=== PATIENT | male | born 1940 | race Caucasian/White ===

== ENCOUNTER 2020-10-03 13:47 | Inpatient (IN) ==
[2020-10-03] MEDS ORDERED: Triamcinolone Acet 0.1% CRM 15 GM TUBE TP PRN (16:26)
[2020-10-03] MEDS: *HR* Metformin 500 MG TABLET PO SCH (17:43)
[2020-10-03] MEDS: Melatonin 3 MG TABLET PO SCH (20:02)
[2020-10-03] MEDS: *HR* OxyCODONE Immed Rel 5 MG TABLET PO PRN (20:03)
[2020-10-03] MEDS: Famotidine 20 MG TABLET PO SCH (20:03)
[2020-10-04] MEDS ORDERED: Dextrose Gel 15 GM/37.5 ML TUBE PO PRN ×2 (05:30)
[2020-10-04] MEDS ORDERED: *HR* Dextrose 50 % in Water (Vial) 50 ML VIAL IVP PRN (05:30)
[2020-10-04] MEDS ORDERED: D5% in Water 1,000 ML IVC PRN (05:30)
[2020-10-04 07:01] LABS: Basophils % 0.3 %; Eosinophils # 0.3 K/mcL (0.0-0.6); Eosinophils % 3.6 %; Hematocrit 38.7 % (37.5-50.1); Hemoglobin 13.5 g/dL (12.9-16.9); Immature Granulocytes % 0.7 % (0-4); Lymphocytes # 1.6 K/mcL (0.6-4.6); Lymphocytes % 22.2 %; Mean Corpuscular HGB Conc 34.9 g/dL (31.6-35.5); Mean Corpuscular Hemoglobin 31.2 pg (28.0-33.3); Mean Corpuscular Volume 89.4 fL (83.0-100.0); Mean Platelet Volume 9.1 fL (9.4-12.4); Monocytes # 0.7 K/mcL (0.0-1.3); Monocytes % 9.2 %; Neutrophils # 4.6 K/mcL (1.6-8.9); Platelet Count 276 K/mcL (140-400); Red Blood Count 4.33 M/mcL (4.19-5.50); Red Cell Distribution Width 13.2 % (11.5-14.5); White Blood Count 7.2 K/mcL (4.3-11.1)
[2020-10-04 07:08] LABS: INR 1.2; Prothrombin Time 13.3 Seconds (9.4-12.1)
[2020-10-04 07:11] LABS: Activated Partial Thrombo Time 28.6 Seconds (26.0-36.0)
[2020-10-04 07:18] LABS: eGFR For African Americans > 60 (> 60); eGFR For Non-African Americans > 60 (> 60)
[2020-10-04] MEDS ORDERED: Cyanocobalamin (B-12) 1,000 MCG TABLET PO SCH (09:00)
[2020-10-04] MEDS: *HR* Metformin 500 MG TABLET PO SCH ×2 (09:42→16:43)
[2020-10-04] MEDS: *HR* OxyCODONE Immed Rel 5 MG TABLET PO PRN ×3 (09:43→20:46)
[2020-10-04] MEDS: *HR* Enoxaparin 40 MG/0.4 ML SYRINGE SQ SCH (09:54)
[2020-10-04] MEDS: Famotidine 20 MG TABLET PO SCH (20:45)
[2020-10-04] MEDS: Melatonin 3 MG TABLET PO SCH (20:45)
[2020-10-05] MEDS: *HR* Enoxaparin 40 MG/0.4 ML SYRINGE SQ SCH (05:09)
[2020-10-05] MEDS: *HR* Metformin 500 MG TABLET PO SCH ×2 (07:37→15:43)
[2020-10-05] MEDS: *HR* OxyCODONE Immed Rel 5 MG TABLET PO PRN ×3 (07:37→20:06)
[2020-10-05] MEDS: Melatonin 3 MG TABLET PO SCH (19:59)
[2020-10-05] MEDS: Famotidine 20 MG TABLET PO SCH (19:59)
[2020-10-06] MEDS: *HR* OxyCODONE Immed Rel 5 MG TABLET PO PRN ×3 (01:31→13:11)
[2020-10-06] MEDS: *HR* Enoxaparin 40 MG/0.4 ML SYRINGE SQ SCH (05:49)
[2020-10-06 07:44] VITALS: BP 125/74
[2020-10-06] MEDS: *HR* Metformin 500 MG TABLET PO SCH (08:20)
== END 2020-10-06 15:50 | disposition home health service (06) | DRG 561 ==
LOC: INPPIK 15:04
PROVIDERS: ADMIT Family Medicine; ATTEND Family Medicine

== ENCOUNTER 2022-01-16 13:37 | Inpatient (IN) ==
[2022-01-16] MEDS ORDERED: Triamcinolone Acet 0.1% CRM 15 GM TUBE TP PRN (20:39)
[2022-01-16] MEDS ORDERED: NON-FORMULARY MEDICATION 1 EACH EACH (Cefepime Hcl/D5w [Cefepime-Dextrose 2 Gm/50 Ml] 2 GM IV SCH (20:45)
[2022-01-16] MEDS ORDERED: DEXTROSE 5% IV SCH (20:45)
[2022-01-16] MEDS ORDERED: VANCOMYCIN HCL IV SCH (20:45)
[2022-01-16] MEDS ORDERED: [UNRECOGNIZED DRUG - OTHER] IV SCH (20:45)
[2022-01-16] MEDS: *HR* OxyCODONE/APAP 5/325 TABLET PO PRN (20:55)
[2022-01-16] MEDS: Lactobacillus 1 EACH CAP.SPRINK PO SCH (21:21)
[2022-01-16] MEDS: metroNIDAZOLE 500 MG TABLET PO SCH (21:21)
[2022-01-17] MEDS: Cefepime HCl 2,000 MG in 0.9 % Sodium Chloride Mini Bag 100 ML IVPB SCH ×3 (00:17→18:14)
[2022-01-17] MEDS ORDERED: Vancomycin 500 MG in 0.9 % Sodium Chloride Mini Bag 100 ML IVPB ONE (02:00)
[2022-01-17] MEDS: *HR* OxyCODONE/APAP 5/325 TABLET PO PRN ×3 (05:34→21:35)
[2022-01-17] MEDS ORDERED: DiphenhydraMINE CREAM 28.4 GM TUBE TP PRN (06:02)
[2022-01-17 06:49] LABS: Basophils % 0.3 %; Eosinophils # 0.3 K/mcL (0.0-0.6); Eosinophils % 5.6 %; Hematocrit 36.4 % (37.5-50.1); Hemoglobin 11.7 g/dL (12.9-16.9); Immature Granulocytes % 0.7 % (0-4); Lymphocytes # 1.1 K/mcL (0.6-4.6); Lymphocytes % 18.6 %; Mean Corpuscular HGB Conc 32.1 g/dL (31.6-35.5); Mean Corpuscular Hemoglobin 26.4 pg (28.0-33.3); Mean Platelet Volume 9.9 fL (9.4-12.4); Monocytes # 0.8 K/mcL (0.0-1.3); Monocytes % 12.9 %; Neutrophils # 3.6 K/mcL (1.6-8.9); Platelet Count 204 K/mcL (140-400); Red Blood Count 4.44 M/mcL (4.19-5.50); Red Cell Distribution Width 14.8 % (11.5-14.5); Segmented Neutrophils % 61.9 %; White Blood Count 5.9 K/mcL (4.3-11.1)
[2022-01-17 07:08] LABS: BUN/Creatinine Ratio 20 (6-26); Blood Urea Nitrogen 17 mg/dL (8-23); Calcium 8.6 mg/dL (8.6-10.3); Carbon Dioxide 27 mEq/L (23-29); Chloride 103 mEq/L (98-107); Glucose 144 mg/dL (70-105); Osmolality,Calculated 286 (280-300); Potassium 3.4 mEq/L (3.5-5.1); Sodium 136 mEq/L (136-145); eGFR For African Americans > 60 (> 60); eGFR For Non-African Americans > 60 (> 60)
[2022-01-17] MEDS: amLODIPine 5 MG TABLET PO SCH (08:19)
[2022-01-17] MEDS: metroNIDAZOLE 500 MG TABLET PO SCH ×3 (08:19→21:09)
[2022-01-17] MEDS: Lactobacillus 1 EACH CAP.SPRINK PO SCH ×2 (08:19→21:09)
[2022-01-17] MEDS: *HR* SitaGLIPtin 25 MG TABLET PO SCH (08:19)
[2022-01-17] MEDS: Cyanocobalamin (B-12) 1,000 MCG TABLET PO SCH (08:20)
[2022-01-17] MEDS ORDERED: Vancomycin 1,500 MG/265 ML IV.SOLN IVPB SCH (17:00)
[2022-01-18] MEDS: Cefepime HCl 2,000 MG in 0.9 % Sodium Chloride Mini Bag 100 ML IVPB SCH ×4 (01:32→23:13)
[2022-01-18] MEDS: amLODIPine 5 MG TABLET PO SCH (09:44)
[2022-01-18] MEDS: metroNIDAZOLE 500 MG TABLET PO SCH ×3 (09:44→20:03)
[2022-01-18] MEDS: *HR* SitaGLIPtin 25 MG TABLET PO SCH (09:44)
[2022-01-18] MEDS: Lactobacillus 1 EACH CAP.SPRINK PO SCH ×2 (09:44→20:03)
[2022-01-18] MEDS: Cyanocobalamin (B-12) 1,000 MCG TABLET PO SCH (09:46)
[2022-01-18] MEDS: Vancomycin 1,500 MG/265 ML IV.SOLN IVPB SCH ×2 (11:15→20:03)
[2022-01-18] MEDS ORDERED: *HR* Dextrose 50 % in Water (Syg) 50 ML SYRINGE IVP PRN (12:41)
[2022-01-18] MEDS ORDERED: D5% in Water 1,000 ML IVC PRN (12:41)
[2022-01-18] MEDS ORDERED: Dextrose Gel 15 GM/37.5 ML TUBE PO PRN ×2 (12:41)
[2022-01-18] MEDS: *HR* OxyCODONE/APAP 5/325 TABLET PO PRN ×2 (13:06→18:30)
[2022-01-18] MEDS: Insulin LISPRO 300 UNITS/3 ML VIAL SUBQ SCH ×2 (18:22→22:56)
[2022-01-19] MEDS: *HR* Enoxaparin 40 MG/0.4 ML SYRINGE SQ SCH (05:10)
[2022-01-19] MEDS: *HR* OxyCODONE/APAP 5/325 TABLET PO PRN ×3 (05:13→22:39)
[2022-01-19] MEDS: Cefepime HCl 2,000 MG in 0.9 % Sodium Chloride Mini Bag 100 ML IVPB SCH ×3 (09:09→23:38)
[2022-01-19] MEDS: Insulin LISPRO 300 UNITS/3 ML VIAL SUBQ SCH ×4 (09:11→20:46)
[2022-01-19] MEDS: Lactobacillus 1 EACH CAP.SPRINK PO SCH ×2 (09:11→20:46)
[2022-01-19] MEDS: amLODIPine 5 MG TABLET PO SCH (09:11)
[2022-01-19] MEDS: *HR* SitaGLIPtin 25 MG TABLET PO SCH (09:11)
[2022-01-19] MEDS: Cyanocobalamin (B-12) 1,000 MCG TABLET PO SCH (09:12)
[2022-01-19] MEDS: metroNIDAZOLE 500 MG TABLET PO SCH ×3 (09:12→20:45)
[2022-01-19] MEDS: Vancomycin 1,500 MG/265 ML IV.SOLN IVPB SCH ×2 (10:54→13:28)
[2022-01-20] MEDS: Vancomycin 1,500 MG/265 ML IV.SOLN IVPB SCH ×2 (00:42→11:49)
[2022-01-20] MEDS: *HR* OxyCODONE/APAP 5/325 TABLET PO PRN ×5 (02:45→22:22)
[2022-01-20] MEDS: *HR* Enoxaparin 40 MG/0.4 ML SYRINGE SQ SCH (05:20)
[2022-01-20] MEDS: Cyanocobalamin (B-12) 1,000 MCG TABLET PO SCH (08:17)
[2022-01-20] MEDS: Lactobacillus 1 EACH CAP.SPRINK PO SCH ×2 (08:17→20:06)
[2022-01-20] MEDS: metroNIDAZOLE 500 MG TABLET PO SCH ×3 (08:18→20:05)
[2022-01-20] MEDS: *HR* SitaGLIPtin 25 MG TABLET PO SCH (08:18)
[2022-01-20] MEDS: amLODIPine 5 MG TABLET PO SCH (08:18)
[2022-01-20] MEDS: Cefepime HCl 2,000 MG in 0.9 % Sodium Chloride Mini Bag 100 ML IVPB SCH ×3 (08:18→23:15)
[2022-01-20] MEDS: Insulin LISPRO 300 UNITS/3 ML VIAL SUBQ SCH ×4 (08:28→20:06)
[2022-01-21] MEDS: Vancomycin 1,500 MG/265 ML IV.SOLN IVPB SCH (00:17)
[2022-01-21] MEDS: *HR* OxyCODONE/APAP 5/325 TABLET PO PRN ×4 (05:32→20:03)
[2022-01-21] MEDS: *HR* Enoxaparin 40 MG/0.4 ML SYRINGE SQ SCH (05:32)
[2022-01-21] MEDS: Insulin LISPRO 300 UNITS/3 ML VIAL SUBQ SCH ×4 (08:01→20:05)
[2022-01-21] MEDS: Cefepime HCl 2,000 MG in 0.9 % Sodium Chloride Mini Bag 100 ML IVPB SCH ×3 (08:02→23:42)
[2022-01-21] MEDS: amLODIPine 5 MG TABLET PO SCH (08:03)
[2022-01-21] MEDS: Cyanocobalamin (B-12) 1,000 MCG TABLET PO SCH (08:03)
[2022-01-21] MEDS: metroNIDAZOLE 500 MG TABLET PO SCH ×3 (08:03→20:05)
[2022-01-21] MEDS: *HR* SitaGLIPtin 25 MG TABLET PO SCH (08:03)
[2022-01-21] MEDS: Lactobacillus 1 EACH CAP.SPRINK PO SCH ×2 (08:03→20:03)
[2022-01-21] MEDS: Vancomycin 1,250 MG/262.5 ML IV.SOLN IVPB SCH (12:54)
[2022-01-22] MEDS: Vancomycin 1,250 MG/262.5 ML IV.SOLN IVPB SCH ×2 (00:43→13:18)
[2022-01-22] MEDS: *HR* Enoxaparin 40 MG/0.4 ML SYRINGE SQ SCH (05:15)
[2022-01-22] MEDS: Insulin LISPRO 300 UNITS/3 ML VIAL SUBQ SCH ×4 (07:21→20:19)
[2022-01-22] MEDS: Cyanocobalamin (B-12) 1,000 MCG TABLET PO SCH (08:11)
[2022-01-22] MEDS: metroNIDAZOLE 500 MG TABLET PO SCH ×3 (08:12→20:12)
[2022-01-22] MEDS: Lactobacillus 1 EACH CAP.SPRINK PO SCH ×2 (08:12→20:12)
[2022-01-22] MEDS: amLODIPine 5 MG TABLET PO SCH (08:13)
[2022-01-22] MEDS: *HR* OxyCODONE/APAP 5/325 TABLET PO PRN ×3 (08:13→22:17)
[2022-01-22] MEDS: *HR* SitaGLIPtin 25 MG TABLET PO SCH (08:13)
[2022-01-22] MEDS: Cefepime HCl 2,000 MG in 0.9 % Sodium Chloride Mini Bag 100 ML IVPB SCH ×2 (08:15→16:34)
[2022-01-22 12:23] LABS: eGFR For African Americans > 60 (> 60); eGFR For Non-African Americans > 60 (> 60)
[2022-01-23] MEDS: Cefepime HCl 2,000 MG in 0.9 % Sodium Chloride Mini Bag 100 ML IVPB SCH ×3 (00:54→17:07)
[2022-01-23 01:15] LABS: eGFR For African Americans > 60 (> 60); eGFR For Non-African Americans > 60 (> 60)
[2022-01-23] MEDS: Vancomycin 1,250 MG/262.5 ML IV.SOLN IVPB SCH ×2 (01:29→12:13)
[2022-01-23] MEDS: *HR* OxyCODONE/APAP 5/325 TABLET PO PRN ×3 (03:20→20:02)
[2022-01-23] MEDS: *HR* Enoxaparin 40 MG/0.4 ML SYRINGE SQ SCH (06:20)
[2022-01-23 08:57] LABS: Basophils % 0.6 %; Eosinophils # 0.3 K/mcL (0.0-0.6); Eosinophils % 6.3 %; Hematocrit 39.6 % (37.5-50.1); Hemoglobin 12.6 g/dL (12.9-16.9); Immature Granulocytes % 0.4 % (0-4); Lymphocytes # 1.1 K/mcL (0.6-4.6); Lymphocytes % 21.6 %; Mean Corpuscular HGB Conc 31.8 g/dL (31.6-35.5); Mean Corpuscular Hemoglobin 25.9 pg (28.0-33.3); Mean Corpuscular Volume 81.3 fL (83.0-100.0); Mean Platelet Volume 9.5 fL (9.4-12.4); Monocytes # 0.5 K/mcL (0.0-1.3); Monocytes % 9.5 %; Neutrophils # 3.1 K/mcL (1.6-8.9); Platelet Count 243 K/mcL (140-400); Red Blood Count 4.87 M/mcL (4.19-5.50); Red Cell Distribution Width 14.6 % (11.5-14.5); Segmented Neutrophils % 61.6 %
[2022-01-23] MEDS: amLODIPine 5 MG TABLET PO SCH (09:01)
[2022-01-23] MEDS: Cyanocobalamin (B-12) 1,000 MCG TABLET PO SCH (09:02)
[2022-01-23] MEDS: Lactobacillus 1 EACH CAP.SPRINK PO SCH ×2 (09:02→20:02)
[2022-01-23] MEDS: metroNIDAZOLE 500 MG TABLET PO SCH ×3 (09:02→20:02)
[2022-01-23] MEDS: *HR* SitaGLIPtin 25 MG TABLET PO SCH (09:02)
[2022-01-23] MEDS: Insulin LISPRO 300 UNITS/3 ML VIAL SUBQ SCH ×4 (09:04→21:00)
[2022-01-23 09:07] LABS: BUN/Creatinine Ratio 18 (6-26); Blood Urea Nitrogen 14 mg/dL (8-23); Calcium 8.9 mg/dL (8.6-10.3); Carbon Dioxide 26 mEq/L (23-29); Chloride 103 mEq/L (98-107); Glucose 135 mg/dL (70-105); Osmolality,Calculated 289 (280-300); Sodium 138 mEq/L (136-145); eGFR For African Americans > 60 (> 60); eGFR For Non-African Americans > 60 (> 60)
[2022-01-23 13:10] LABS: C-Reactive Protein < 5 mg/L (Less than 10)
[2022-01-24] MEDS: Cefepime HCl 2,000 MG in 0.9 % Sodium Chloride Mini Bag 100 ML IVPB SCH ×4 (00:36→23:43)
[2022-01-24] MEDS: Vancomycin 1,250 MG/262.5 ML IV.SOLN IVPB SCH ×2 (01:45→13:33)
[2022-01-24] MEDS: *HR* Enoxaparin 40 MG/0.4 ML SYRINGE SQ SCH (05:13)
[2022-01-24 08:12] LABS: eGFR For African Americans > 60 (> 60); eGFR For Non-African Americans > 60 (> 60)
[2022-01-24] MEDS: Cyanocobalamin (B-12) 1,000 MCG TABLET PO SCH (08:13)
[2022-01-24] MEDS: metroNIDAZOLE 500 MG TABLET PO SCH ×3 (08:13→20:36)
[2022-01-24] MEDS: *HR* SitaGLIPtin 25 MG TABLET PO SCH (08:13)
[2022-01-24] MEDS: amLODIPine 5 MG TABLET PO SCH (08:13)
[2022-01-24] MEDS: Lactobacillus 1 EACH CAP.SPRINK PO SCH ×2 (08:13→20:36)
[2022-01-24] MEDS: Insulin LISPRO 300 UNITS/3 ML VIAL SUBQ SCH ×4 (08:21→20:37)
[2022-01-25] MEDS: Vancomycin 1,250 MG/262.5 ML IV.SOLN IVPB SCH ×3 (00:30→23:53)
[2022-01-25 06:12] LABS: eGFR For African Americans > 60 (> 60); eGFR For Non-African Americans > 60 (> 60)
[2022-01-25] MEDS: *HR* Enoxaparin 40 MG/0.4 ML SYRINGE SQ SCH (08:03)
[2022-01-25] MEDS: Insulin LISPRO 300 UNITS/3 ML VIAL SUBQ SCH ×4 (08:04→20:34)
[2022-01-25] MEDS: Cefepime HCl 2,000 MG in 0.9 % Sodium Chloride Mini Bag 100 ML IVPB SCH ×3 (08:05→23:03)
[2022-01-25] MEDS: metroNIDAZOLE 500 MG TABLET PO SCH ×3 (08:06→20:33)
[2022-01-25] MEDS: Lactobacillus 1 EACH CAP.SPRINK PO SCH ×2 (08:06→20:33)
[2022-01-25] MEDS: Cyanocobalamin (B-12) 1,000 MCG TABLET PO SCH (08:07)
[2022-01-25] MEDS: *HR* SitaGLIPtin 25 MG TABLET PO SCH (08:07)
[2022-01-25] MEDS: amLODIPine 5 MG TABLET PO SCH (08:07)
[2022-01-26] MEDS: *HR* Enoxaparin 40 MG/0.4 ML SYRINGE SQ SCH (05:14)
[2022-01-26 07:17] LABS: eGFR For African Americans > 60 (> 60); eGFR For Non-African Americans > 60 (> 60)
[2022-01-26] MEDS: Cefepime HCl 2,000 MG in 0.9 % Sodium Chloride Mini Bag 100 ML IVPB SCH ×2 (09:39→15:38)
[2022-01-26] MEDS: Insulin LISPRO 300 UNITS/3 ML VIAL SUBQ SCH ×4 (09:39→21:08)
[2022-01-26] MEDS: amLODIPine 5 MG TABLET PO SCH (09:40)
[2022-01-26] MEDS: metroNIDAZOLE 500 MG TABLET PO SCH ×3 (09:40→20:39)
[2022-01-26] MEDS: Lactobacillus 1 EACH CAP.SPRINK PO SCH ×2 (09:41→20:38)
[2022-01-26] MEDS: Cyanocobalamin (B-12) 1,000 MCG TABLET PO SCH (09:41)
[2022-01-26] MEDS: *HR* SitaGLIPtin 25 MG TABLET PO SCH (09:41)
[2022-01-26] MEDS: Vancomycin 1,250 MG/262.5 ML IV.SOLN IVPB SCH (13:39)
[2022-01-26] MEDS: *HR* OxyCODONE/APAP 5/325 TABLET PO PRN (20:38)
[2022-01-27] MEDS: Cefepime HCl 2,000 MG in 0.9 % Sodium Chloride Mini Bag 100 ML IVPB SCH ×4 (00:40→23:26)
[2022-01-27] MEDS: Vancomycin 1,250 MG/262.5 ML IV.SOLN IVPB SCH ×2 (02:00→14:00)
[2022-01-27] MEDS: *HR* Enoxaparin 40 MG/0.4 ML SYRINGE SQ SCH (06:44)
[2022-01-27] MEDS: Insulin LISPRO 300 UNITS/3 ML VIAL SUBQ SCH ×4 (07:40→20:04)
[2022-01-27] MEDS: amLODIPine 5 MG TABLET PO SCH (10:16)
[2022-01-27] MEDS: metroNIDAZOLE 500 MG TABLET PO SCH ×3 (10:16→19:57)
[2022-01-27] MEDS: Cyanocobalamin (B-12) 1,000 MCG TABLET PO SCH (10:16)
[2022-01-27] MEDS: *HR* SitaGLIPtin 25 MG TABLET PO SCH (10:16)
[2022-01-27] MEDS: Lactobacillus 1 EACH CAP.SPRINK PO SCH ×2 (10:16→19:57)
[2022-01-28] MEDS: Vancomycin 1,250 MG/262.5 ML IV.SOLN IVPB SCH ×2 (00:36→14:33)
[2022-01-28] MEDS: *HR* Enoxaparin 40 MG/0.4 ML SYRINGE SQ SCH (06:01)
[2022-01-28] MEDS: Cyanocobalamin (B-12) 1,000 MCG TABLET PO SCH (08:46)
[2022-01-28] MEDS: Lactobacillus 1 EACH CAP.SPRINK PO SCH ×2 (08:46→19:17)
[2022-01-28] MEDS: *HR* SitaGLIPtin 25 MG TABLET PO SCH (08:46)
[2022-01-28] MEDS: Cefepime HCl 2,000 MG in 0.9 % Sodium Chloride Mini Bag 100 ML IVPB SCH ×3 (08:46→23:00)
[2022-01-28] MEDS: metroNIDAZOLE 500 MG TABLET PO SCH ×3 (08:46→19:17)
[2022-01-28] MEDS: amLODIPine 5 MG TABLET PO SCH (08:46)
[2022-01-28] MEDS: Insulin LISPRO 300 UNITS/3 ML VIAL SUBQ SCH ×4 (08:47→21:07)
[2022-01-28 08:52] LABS: eGFR For African Americans > 60 (> 60); eGFR For Non-African Americans > 60 (> 60)
[2022-01-29] MEDS: Vancomycin 1,250 MG/262.5 ML IV.SOLN IVPB SCH ×2 (00:10→14:46)
[2022-01-29] MEDS: *HR* Enoxaparin 40 MG/0.4 ML SYRINGE SQ SCH (05:45)
[2022-01-29 07:41] LABS: Basophils % 0.4 %; Eosinophils # 0.4 K/mcL (0.0-0.6); Eosinophils % 7.9 %; Hematocrit 37.9 % (37.5-50.1); Hemoglobin 12.1 g/dL (12.9-16.9); Immature Granulocytes % 0.2 % (0-4); Lymphocytes % 21.5 %; Mean Corpuscular HGB Conc 31.9 g/dL (31.6-35.5); Mean Corpuscular Hemoglobin 25.8 pg (28.0-33.3); Mean Corpuscular Volume 80.8 fL (83.0-100.0); Mean Platelet Volume 9.9 fL (9.4-12.4); Monocytes # 0.6 K/mcL (0.0-1.3); Monocytes % 12.6 %; Neutrophils # 2.7 K/mcL (1.6-8.9); Platelet Count 184 K/mcL (140-400); Red Blood Count 4.69 M/mcL (4.19-5.50); Red Cell Distribution Width 14.8 % (11.5-14.5); Segmented Neutrophils % 57.4 %; White Blood Count 4.8 K/mcL (4.3-11.1)
[2022-01-29 07:51] LABS: BUN/Creatinine Ratio 22 (6-26); Blood Urea Nitrogen 14 mg/dL (8-23); Calcium 8.7 mg/dL (8.6-10.3); Carbon Dioxide 27 mEq/L (23-29); Chloride 105 mEq/L (98-107); Glucose 125 mg/dL (70-105); Osmolality,Calculated 290 (280-300); Sodium 139 mEq/L (136-145); eGFR For African Americans > 60 (> 60); eGFR For Non-African Americans > 60 (> 60)
[2022-01-29] MEDS: Insulin LISPRO 300 UNITS/3 ML VIAL SUBQ SCH ×4 (08:17→21:32)
[2022-01-29] MEDS: metroNIDAZOLE 500 MG TABLET PO SCH ×3 (08:26→21:31)
[2022-01-29] MEDS: Lactobacillus 1 EACH CAP.SPRINK PO SCH ×2 (08:26→21:32)
[2022-01-29] MEDS: amLODIPine 5 MG TABLET PO SCH (08:26)
[2022-01-29] MEDS: Cyanocobalamin (B-12) 1,000 MCG TABLET PO SCH (08:26)
[2022-01-29] MEDS: *HR* SitaGLIPtin 25 MG TABLET PO SCH (08:26)
[2022-01-29] MEDS: Cefepime HCl 2,000 MG in 0.9 % Sodium Chloride Mini Bag 100 ML IVPB SCH ×2 (08:27→17:20)
[2022-01-29] MEDS: *HR* OxyCODONE/APAP 5/325 TABLET PO PRN (09:16)
[2022-01-29 12:10] LABS: C-Reactive Protein < 5 mg/L (Less than 10)
[2022-01-30] MEDS: Cefepime HCl 2,000 MG in 0.9 % Sodium Chloride Mini Bag 100 ML IVPB SCH ×3 (00:41→15:00)
[2022-01-30] MEDS: Vancomycin 1,250 MG/262.5 ML IV.SOLN IVPB SCH ×2 (01:59→12:20)
[2022-01-30] MEDS: *HR* Enoxaparin 40 MG/0.4 ML SYRINGE SQ SCH (06:23)
[2022-01-30] MEDS: Insulin LISPRO 300 UNITS/3 ML VIAL SUBQ SCH ×4 (07:53→19:44)
[2022-01-30] MEDS: amLODIPine 5 MG TABLET PO SCH (07:54)
[2022-01-30] MEDS: *HR* SitaGLIPtin 25 MG TABLET PO SCH (07:54)
[2022-01-30] MEDS: metroNIDAZOLE 500 MG TABLET PO SCH ×2 (07:55→15:01)
[2022-01-30] MEDS: Lactobacillus 1 EACH CAP.SPRINK PO SCH ×2 (07:55→19:32)
[2022-01-30] MEDS: Cyanocobalamin (B-12) 1,000 MCG TABLET PO SCH (07:55)
[2022-01-31] MEDS: Cefepime HCl 2,000 MG in 0.9 % Sodium Chloride Mini Bag 100 ML IVPB SCH ×3 (00:55→15:50)
[2022-01-31] MEDS: Vancomycin 1,250 MG/262.5 ML IV.SOLN IVPB SCH ×2 (01:52→13:34)
[2022-01-31] MEDS: *HR* Enoxaparin 40 MG/0.4 ML SYRINGE SQ SCH (06:20)
[2022-01-31] MEDS: Lactobacillus 1 EACH CAP.SPRINK PO SCH ×2 (08:54→20:13)
[2022-01-31] MEDS: *HR* SitaGLIPtin 25 MG TABLET PO SCH (08:54)
[2022-01-31] MEDS: Cyanocobalamin (B-12) 1,000 MCG TABLET PO SCH (08:54)
[2022-01-31] MEDS: amLODIPine 5 MG TABLET PO SCH (08:54)
[2022-01-31] MEDS: Insulin LISPRO 300 UNITS/3 ML VIAL SUBQ SCH ×4 (08:57→20:13)
[2022-01-31] MEDS: *HR* OxyCODONE/APAP 5/325 TABLET PO PRN (20:12)
[2022-02-01] MEDS: Vancomycin 1,250 MG/262.5 ML IV.SOLN IVPB SCH ×2 (01:11→13:51)
[2022-02-01] MEDS: *HR* Enoxaparin 40 MG/0.4 ML SYRINGE SQ SCH (06:11)
[2022-02-01] MEDS: amLODIPine 5 MG TABLET PO SCH (07:56)
[2022-02-01] MEDS: Cyanocobalamin (B-12) 1,000 MCG TABLET PO SCH (07:56)
[2022-02-01] MEDS: Lactobacillus 1 EACH CAP.SPRINK PO SCH ×2 (07:56→22:38)
[2022-02-01] MEDS: *HR* SitaGLIPtin 25 MG TABLET PO SCH (07:56)
[2022-02-01] MEDS: Insulin LISPRO 300 UNITS/3 ML VIAL SUBQ SCH ×4 (07:57→22:41)
[2022-02-01] MEDS: *HR* OxyCODONE/APAP 5/325 TABLET PO PRN (22:39)
[2022-02-02] MEDS: Vancomycin 1,250 MG/262.5 ML IV.SOLN IVPB SCH ×2 (01:16→14:14)
[2022-02-02] MEDS: *HR* Enoxaparin 40 MG/0.4 ML SYRINGE SQ SCH (06:45)
[2022-02-02] MEDS: amLODIPine 5 MG TABLET PO SCH (07:55)
[2022-02-02] MEDS: *HR* OxyCODONE/APAP 5/325 TABLET PO PRN ×2 (07:56→21:34)
[2022-02-02] MEDS: Lactobacillus 1 EACH CAP.SPRINK PO SCH ×2 (07:56→21:33)
[2022-02-02] MEDS: Cyanocobalamin (B-12) 1,000 MCG TABLET PO SCH (07:56)
[2022-02-02] MEDS: *HR* SitaGLIPtin 25 MG TABLET PO SCH (07:56)
[2022-02-02] MEDS: Insulin LISPRO 300 UNITS/3 ML VIAL SUBQ SCH ×4 (07:57→21:36)
[2022-02-03] MEDS: Vancomycin 1,250 MG/262.5 ML IV.SOLN IVPB SCH ×2 (01:40→12:52)
[2022-02-03] MEDS: *HR* Enoxaparin 40 MG/0.4 ML SYRINGE SQ SCH (06:29)
[2022-02-03] MEDS: Insulin LISPRO 300 UNITS/3 ML VIAL SUBQ SCH ×4 (07:41→21:18)
[2022-02-03] MEDS: *HR* SitaGLIPtin 25 MG TABLET PO SCH (07:41)
[2022-02-03] MEDS: Lactobacillus 1 EACH CAP.SPRINK PO SCH ×2 (07:42→21:17)
[2022-02-03] MEDS: Cyanocobalamin (B-12) 1,000 MCG TABLET PO SCH (07:42)
[2022-02-03] MEDS: amLODIPine 5 MG TABLET PO SCH (07:42)
[2022-02-03] MEDS: *HR* OxyCODONE/APAP 5/325 TABLET PO PRN ×2 (07:46→21:18)
[2022-02-04] MEDS: Vancomycin 1,250 MG/262.5 ML IV.SOLN IVPB SCH ×2 (00:55→13:03)
[2022-02-04] MEDS: *HR* Enoxaparin 40 MG/0.4 ML SYRINGE SQ SCH (05:23)
[2022-02-04] MEDS: Insulin LISPRO 300 UNITS/3 ML VIAL SUBQ SCH ×4 (07:27→20:52)
[2022-02-04] MEDS: amLODIPine 5 MG TABLET PO SCH (08:41)
[2022-02-04] MEDS: Cyanocobalamin (B-12) 1,000 MCG TABLET PO SCH (08:42)
[2022-02-04] MEDS: *HR* SitaGLIPtin 25 MG TABLET PO SCH (08:42)
[2022-02-04] MEDS: Lactobacillus 1 EACH CAP.SPRINK PO SCH ×2 (08:42→20:52)
[2022-02-05] MEDS: Vancomycin 1,250 MG/262.5 ML IV.SOLN IVPB SCH ×2 (00:50→13:41)
[2022-02-05] MEDS: *HR* Enoxaparin 40 MG/0.4 ML SYRINGE SQ SCH (05:27)
[2022-02-05] MEDS: Lactobacillus 1 EACH CAP.SPRINK PO SCH ×2 (09:44→19:58)
[2022-02-05] MEDS: amLODIPine 5 MG TABLET PO SCH (09:44)
[2022-02-05] MEDS: *HR* SitaGLIPtin 25 MG TABLET PO SCH (09:44)
[2022-02-05] MEDS: metroNIDAZOLE 500 MG TABLET PO SCH ×3 (09:45→19:59)
[2022-02-05] MEDS: Insulin LISPRO 300 UNITS/3 ML VIAL SUBQ SCH ×4 (09:45→19:59)
[2022-02-05] MEDS: Cyanocobalamin (B-12) 1,000 MCG TABLET PO SCH (09:45)
[2022-02-05] MEDS: *HR* OxyCODONE/APAP 5/325 TABLET PO PRN (20:02)
[2022-02-06] MEDS: Vancomycin 1,250 MG/262.5 ML IV.SOLN IVPB SCH ×2 (00:54→14:56)
[2022-02-06] MEDS: *HR* Enoxaparin 40 MG/0.4 ML SYRINGE SQ SCH (05:29)
[2022-02-06] MEDS: Insulin LISPRO 300 UNITS/3 ML VIAL SUBQ SCH ×3 (08:55→16:39)
[2022-02-06] MEDS: metroNIDAZOLE 500 MG TABLET PO SCH ×3 (09:01→20:05)
[2022-02-06] MEDS: Lactobacillus 1 EACH CAP.SPRINK PO SCH ×2 (09:01→20:05)
[2022-02-06] MEDS: *HR* SitaGLIPtin 25 MG TABLET PO SCH (09:02)
[2022-02-06] MEDS: amLODIPine 5 MG TABLET PO SCH (09:02)
[2022-02-06] MEDS: Cyanocobalamin (B-12) 1,000 MCG TABLET PO SCH (09:02)
[2022-02-06 09:04] LABS: Basophils % 0.5 %; Eosinophils # 0.3 K/mcL (0.0-0.6); Eosinophils % 7.6 %; Hematocrit 42.9 % (37.5-50.1); Hemoglobin 13.9 g/dL (12.9-16.9); Immature Granulocytes % 0.3 % (0-4); Lymphocytes # 1.1 K/mcL (0.6-4.6); Lymphocytes % 27.2 %; Mean Corpuscular HGB Conc 32.4 g/dL (31.6-35.5); Mean Corpuscular Hemoglobin 26.1 pg (28.0-33.3); Mean Corpuscular Volume 80.5 fL (83.0-100.0); Mean Platelet Volume 10.4 fL (9.4-12.4); Monocytes # 0.5 K/mcL (0.0-1.3); Platelet Count 178 K/mcL (140-400); Red Blood Count 5.33 M/mcL (4.19-5.50); Segmented Neutrophils % 51.4 %; White Blood Count 3.9 K/mcL (4.3-11.1)
[2022-02-06 09:31] LABS: BUN/Creatinine Ratio 24 (6-26); Blood Urea Nitrogen 18 mg/dL (8-23); Calcium 9.2 mg/dL (8.6-10.3); Carbon Dioxide 24 mEq/L (23-29); Chloride 104 mEq/L (98-107); Glucose 145 mg/dL (70-105); Osmolality,Calculated 288 (280-300); Potassium 4.5 mEq/L (3.5-5.1); Sodium 137 mEq/L (136-145); eGFR For African Americans > 60 (> 60); eGFR For Non-African Americans > 60 (> 60)
[2022-02-06] MEDS: *HR* OxyCODONE/APAP 5/325 TABLET PO PRN (20:04)
[2022-02-06 21:00] LABS: C-Reactive Protein < 5 mg/L (Less than 10)
[2022-02-07] MEDS: Insulin LISPRO 300 UNITS/3 ML VIAL SUBQ SCH ×5 (00:02→21:03)
[2022-02-07] MEDS: Vancomycin 1,250 MG/262.5 ML IV.SOLN IVPB SCH ×2 (00:51→13:10)
[2022-02-07] MEDS: *HR* Enoxaparin 40 MG/0.4 ML SYRINGE SQ SCH (05:56)
[2022-02-07] MEDS: Lactobacillus 1 EACH CAP.SPRINK PO SCH ×2 (07:41→21:02)
[2022-02-07] MEDS: amLODIPine 5 MG TABLET PO SCH (07:41)
[2022-02-07] MEDS: metroNIDAZOLE 500 MG TABLET PO SCH ×3 (07:41→21:02)
[2022-02-07] MEDS: Cyanocobalamin (B-12) 1,000 MCG TABLET PO SCH (07:41)
[2022-02-07] MEDS: *HR* SitaGLIPtin 25 MG TABLET PO SCH (07:41)
[2022-02-07] MEDS: *HR* OxyCODONE/APAP 5/325 TABLET PO PRN (21:02)
[2022-02-08] MEDS: Vancomycin 1,250 MG/262.5 ML IV.SOLN IVPB SCH ×2 (01:00→13:25)
[2022-02-08] MEDS: *HR* Enoxaparin 40 MG/0.4 ML SYRINGE SQ SCH (05:30)
[2022-02-08] MEDS: Cyanocobalamin (B-12) 1,000 MCG TABLET PO SCH (08:16)
[2022-02-08] MEDS: Lactobacillus 1 EACH CAP.SPRINK PO SCH ×2 (08:16→21:39)
[2022-02-08] MEDS: metroNIDAZOLE 500 MG TABLET PO SCH ×3 (08:16→21:39)
[2022-02-08] MEDS: *HR* SitaGLIPtin 25 MG TABLET PO SCH (08:16)
[2022-02-08] MEDS: amLODIPine 5 MG TABLET PO SCH (08:16)
[2022-02-08] MEDS: Insulin LISPRO 300 UNITS/3 ML VIAL SUBQ SCH ×4 (08:17→21:42)
[2022-02-08] MEDS: *HR* OxyCODONE/APAP 5/325 TABLET PO PRN (21:40)
[2022-02-09] MEDS: Vancomycin 1,250 MG/262.5 ML IV.SOLN IVPB SCH ×2 (01:25→11:51)
[2022-02-09] MEDS: *HR* Enoxaparin 40 MG/0.4 ML SYRINGE SQ SCH (05:53)
[2022-02-09] MEDS: amLODIPine 5 MG TABLET PO SCH (08:43)
[2022-02-09] MEDS: Lactobacillus 1 EACH CAP.SPRINK PO SCH ×2 (08:43→20:52)
[2022-02-09] MEDS: Cyanocobalamin (B-12) 1,000 MCG TABLET PO SCH (08:44)
[2022-02-09] MEDS: *HR* SitaGLIPtin 25 MG TABLET PO SCH (08:44)
[2022-02-09] MEDS: metroNIDAZOLE 500 MG TABLET PO SCH ×3 (08:44→20:52)
[2022-02-09] MEDS: Insulin LISPRO 300 UNITS/3 ML VIAL SUBQ SCH ×4 (08:47→21:00)
[2022-02-09] MEDS: *HR* OxyCODONE/APAP 5/325 TABLET PO PRN (16:32)
[2022-02-10] MEDS: Vancomycin 1,250 MG/262.5 ML IV.SOLN IVPB SCH ×2 (02:57→12:11)
[2022-02-10] MEDS: *HR* Enoxaparin 40 MG/0.4 ML SYRINGE SQ SCH (05:57)
[2022-02-10] MEDS: Cyanocobalamin (B-12) 1,000 MCG TABLET PO SCH (07:55)
[2022-02-10] MEDS: metroNIDAZOLE 500 MG TABLET PO SCH ×3 (07:55→20:18)
[2022-02-10] MEDS: Lactobacillus 1 EACH CAP.SPRINK PO SCH ×2 (07:56→20:14)
[2022-02-10] MEDS: *HR* SitaGLIPtin 25 MG TABLET PO SCH (07:56)
[2022-02-10] MEDS: Insulin LISPRO 300 UNITS/3 ML VIAL SUBQ SCH ×4 (07:57→20:24)
[2022-02-10] MEDS: amLODIPine 5 MG TABLET PO SCH (08:56)
[2022-02-10] MEDS: *HR* OxyCODONE/APAP 5/325 TABLET PO PRN (20:14)
[2022-02-11] MEDS: Vancomycin 1,250 MG/262.5 ML IV.SOLN IVPB SCH ×2 (00:43→13:44)
[2022-02-11] MEDS: *HR* Enoxaparin 40 MG/0.4 ML SYRINGE SQ SCH (05:44)
[2022-02-11] MEDS: Lactobacillus 1 EACH CAP.SPRINK PO SCH ×2 (07:40→20:35)
[2022-02-11] MEDS: *HR* SitaGLIPtin 25 MG TABLET PO SCH (07:40)
[2022-02-11] MEDS: metroNIDAZOLE 500 MG TABLET PO SCH ×3 (07:40→20:35)
[2022-02-11] MEDS: Cyanocobalamin (B-12) 1,000 MCG TABLET PO SCH (07:40)
[2022-02-11] MEDS: amLODIPine 5 MG TABLET PO SCH (07:41)
[2022-02-11] MEDS: Insulin LISPRO 300 UNITS/3 ML VIAL SUBQ SCH ×4 (07:43→20:35)
[2022-02-11] MEDS: *HR* OxyCODONE/APAP 5/325 TABLET PO PRN (20:35)
[2022-02-12] MEDS: Vancomycin 1,250 MG/262.5 ML IV.SOLN IVPB SCH ×2 (01:09→13:50)
[2022-02-12] MEDS: *HR* Enoxaparin 40 MG/0.4 ML SYRINGE SQ SCH (04:58)
[2022-02-12] MEDS: Insulin LISPRO 300 UNITS/3 ML VIAL SUBQ SCH ×4 (08:16→21:36)
[2022-02-12 08:25] LABS: Basophils % 0.7 %; Eosinophils # 0.2 K/mcL (0.0-0.6); Eosinophils % 7.2 %; Hematocrit 40.2 % (37.5-50.1); Hemoglobin 13.3 g/dL (12.9-16.9); Immature Granulocytes % 0.3 % (0-4); Lymphocytes # 0.9 K/mcL (0.6-4.6); Lymphocytes % 31.3 %; Mean Corpuscular HGB Conc 33.1 g/dL (31.6-35.5); Mean Corpuscular Hemoglobin 26.3 pg (28.0-33.3); Mean Corpuscular Volume 79.4 fL (83.0-100.0); Mean Platelet Volume 9.7 fL (9.4-12.4); Monocytes # 0.6 K/mcL (0.0-1.3); Monocytes % 19.9 %; Neutrophils # 1.2 K/mcL (1.6-8.9); Platelet Count 159 K/mcL (140-400); Red Blood Count 5.06 M/mcL (4.19-5.50); Red Cell Distribution Width 15.3 % (11.5-14.5); Segmented Neutrophils % 40.6 %; White Blood Count 2.9 K/mcL (4.3-11.1)
[2022-02-12 08:51] LABS: BUN/Creatinine Ratio 21 (6-26); Blood Urea Nitrogen 15 mg/dL (8-23); Carbon Dioxide 24 mEq/L (23-29); Chloride 105 mEq/L (98-107); Glucose 118 mg/dL (70-105); Osmolality,Calculated 286 (280-300); Potassium 3.5 mEq/L (3.5-5.1); Sodium 137 mEq/L (136-145); eGFR For African Americans > 60 (> 60); eGFR For Non-African Americans > 60 (> 60)
[2022-02-12 09:36] LABS: Platelet Estimate Normal (Normal)
[2022-02-12] MEDS: *HR* SitaGLIPtin 25 MG TABLET PO SCH (09:36)
[2022-02-12] MEDS: metroNIDAZOLE 500 MG TABLET PO SCH ×3 (09:37→21:41)
[2022-02-12] MEDS: Lactobacillus 1 EACH CAP.SPRINK PO SCH ×2 (09:37→21:41)
[2022-02-12] MEDS: Cyanocobalamin (B-12) 1,000 MCG TABLET PO SCH (09:37)
[2022-02-12] MEDS: amLODIPine 5 MG TABLET PO SCH (09:38)
[2022-02-12 21:02] LABS: C-Reactive Protein < 5 mg/L (Less than 10)
[2022-02-12] MEDS: *HR* OxyCODONE/APAP 5/325 TABLET PO PRN (21:41)
[2022-02-13] MEDS: Vancomycin 1,250 MG/262.5 ML IV.SOLN IVPB SCH ×2 (01:16→13:26)
[2022-02-13] MEDS: *HR* Enoxaparin 40 MG/0.4 ML SYRINGE SQ SCH (06:49)
[2022-02-13] MEDS: Cyanocobalamin (B-12) 1,000 MCG TABLET PO SCH (09:15)
[2022-02-13] MEDS: Lactobacillus 1 EACH CAP.SPRINK PO SCH ×2 (09:15→21:13)
[2022-02-13] MEDS: *HR* SitaGLIPtin 25 MG TABLET PO SCH (09:15)
[2022-02-13] MEDS: amLODIPine 5 MG TABLET PO SCH (09:15)
[2022-02-13] MEDS: metroNIDAZOLE 500 MG TABLET PO SCH ×3 (09:15→21:12)
[2022-02-13] MEDS: Insulin LISPRO 300 UNITS/3 ML VIAL SUBQ SCH ×4 (09:15→21:13)
[2022-02-13] MEDS: *HR* OxyCODONE/APAP 5/325 TABLET PO PRN (21:12)
[2022-02-14] MEDS: Vancomycin 1,250 MG/262.5 ML IV.SOLN IVPB SCH ×2 (01:43→13:40)
[2022-02-14] MEDS: *HR* Enoxaparin 40 MG/0.4 ML SYRINGE SQ SCH (05:56)
[2022-02-14] MEDS: Insulin LISPRO 300 UNITS/3 ML VIAL SUBQ SCH ×4 (09:04→21:14)
[2022-02-14] MEDS: Lactobacillus 1 EACH CAP.SPRINK PO SCH ×2 (09:05→21:13)
[2022-02-14] MEDS: Cyanocobalamin (B-12) 1,000 MCG TABLET PO SCH (09:05)
[2022-02-14] MEDS: metroNIDAZOLE 500 MG TABLET PO SCH ×3 (09:05→21:14)
[2022-02-14] MEDS: *HR* SitaGLIPtin 25 MG TABLET PO SCH (09:05)
[2022-02-14] MEDS: amLODIPine 5 MG TABLET PO SCH (09:05)
[2022-02-14] MEDS: *HR* OxyCODONE/APAP 5/325 TABLET PO PRN (21:13)
[2022-02-15] MEDS: Vancomycin 1,250 MG/262.5 ML IV.SOLN IVPB SCH ×2 (01:25→14:02)
[2022-02-15] MEDS: *HR* Enoxaparin 40 MG/0.4 ML SYRINGE SQ SCH (06:44)
[2022-02-15] MEDS: amLODIPine 5 MG TABLET PO SCH (08:08)
[2022-02-15] MEDS: metroNIDAZOLE 500 MG TABLET PO SCH ×3 (08:08→20:22)
[2022-02-15] MEDS: Cyanocobalamin (B-12) 1,000 MCG TABLET PO SCH (08:08)
[2022-02-15] MEDS: Lactobacillus 1 EACH CAP.SPRINK PO SCH ×2 (08:08→20:22)
[2022-02-15] MEDS: *HR* SitaGLIPtin 25 MG TABLET PO SCH (08:08)
[2022-02-15] MEDS: Insulin LISPRO 300 UNITS/3 ML VIAL SUBQ SCH ×4 (08:09→20:23)
[2022-02-15] MEDS: *HR* OxyCODONE/APAP 5/325 TABLET PO PRN (20:22)
[2022-02-16] MEDS: Vancomycin 1,250 MG/262.5 ML IV.SOLN IVPB SCH ×2 (01:21→12:10)
[2022-02-16] MEDS: *HR* Enoxaparin 40 MG/0.4 ML SYRINGE SQ SCH (06:06)
[2022-02-16] MEDS: Insulin LISPRO 300 UNITS/3 ML VIAL SUBQ SCH ×4 (07:31→20:24)
[2022-02-16] MEDS: *HR* SitaGLIPtin 25 MG TABLET PO SCH (08:56)
[2022-02-16] MEDS: metroNIDAZOLE 500 MG TABLET PO SCH ×3 (08:56→20:17)
[2022-02-16] MEDS: Cyanocobalamin (B-12) 1,000 MCG TABLET PO SCH (08:56)
[2022-02-16] MEDS: Lactobacillus 1 EACH CAP.SPRINK PO SCH ×2 (08:56→20:17)
[2022-02-16] MEDS: amLODIPine 5 MG TABLET PO SCH (08:56)
[2022-02-16] MEDS: *HR* OxyCODONE/APAP 5/325 TABLET PO PRN (20:17)
[2022-02-17] MEDS: Vancomycin 1,250 MG/262.5 ML IV.SOLN IVPB SCH ×2 (01:09→13:21)
[2022-02-17] MEDS: *HR* Enoxaparin 40 MG/0.4 ML SYRINGE SQ SCH (05:39)
[2022-02-17] MEDS: Insulin LISPRO 300 UNITS/3 ML VIAL SUBQ SCH ×4 (08:58→20:50)
[2022-02-17] MEDS: Lactobacillus 1 EACH CAP.SPRINK PO SCH ×2 (09:24→20:48)
[2022-02-17] MEDS: amLODIPine 5 MG TABLET PO SCH (09:24)
[2022-02-17] MEDS: *HR* SitaGLIPtin 25 MG TABLET PO SCH (09:24)
[2022-02-17] MEDS: metroNIDAZOLE 500 MG TABLET PO SCH ×3 (09:25→20:50)
[2022-02-17] MEDS: Cyanocobalamin (B-12) 1,000 MCG TABLET PO SCH (09:25)
[2022-02-17] MEDS: *HR* OxyCODONE/APAP 5/325 TABLET PO PRN (20:49)
[2022-02-18] MEDS: Vancomycin 1,250 MG/262.5 ML IV.SOLN IVPB SCH ×2 (01:30→11:59)
[2022-02-18] MEDS: *HR* Enoxaparin 40 MG/0.4 ML SYRINGE SQ SCH (06:15)
[2022-02-18] MEDS: Insulin LISPRO 300 UNITS/3 ML VIAL SUBQ SCH ×4 (07:14→21:15)
[2022-02-18] MEDS: metroNIDAZOLE 500 MG TABLET PO SCH ×3 (10:03→21:13)
[2022-02-18] MEDS: Lactobacillus 1 EACH CAP.SPRINK PO SCH ×2 (10:03→21:13)
[2022-02-18] MEDS: Cyanocobalamin (B-12) 1,000 MCG TABLET PO SCH (10:03)
[2022-02-18] MEDS: amLODIPine 5 MG TABLET PO SCH (10:03)
[2022-02-18] MEDS: *HR* SitaGLIPtin 25 MG TABLET PO SCH (10:04)
[2022-02-18] MEDS: Eucerin Cream 57 GM TUBE TP SCH (11:31)
[2022-02-19] MEDS: Vancomycin 1,250 MG/262.5 ML IV.SOLN IVPB SCH ×2 (01:30→13:36)
[2022-02-19] MEDS: *HR* Enoxaparin 40 MG/0.4 ML SYRINGE SQ SCH (06:05)
[2022-02-19] MEDS: amLODIPine 5 MG TABLET PO SCH (08:12)
[2022-02-19] MEDS: *HR* SitaGLIPtin 25 MG TABLET PO SCH (08:12)
[2022-02-19] MEDS: metroNIDAZOLE 500 MG TABLET PO SCH ×3 (08:12→19:54)
[2022-02-19] MEDS: Lactobacillus 1 EACH CAP.SPRINK PO SCH ×2 (08:12→19:54)
[2022-02-19] MEDS: Cyanocobalamin (B-12) 1,000 MCG TABLET PO SCH (08:12)
[2022-02-19] MEDS: Eucerin Cream 57 GM TUBE TP SCH (08:13)
[2022-02-19] MEDS: Insulin LISPRO 300 UNITS/3 ML VIAL SUBQ SCH ×3 (08:26→17:50)
[2022-02-20] MEDS: Vancomycin 1,250 MG/262.5 ML IV.SOLN IVPB SCH ×2 (01:25→14:04)
[2022-02-20] MEDS: Insulin LISPRO 300 UNITS/3 ML VIAL SUBQ SCH ×5 (03:51→21:52)
[2022-02-20] MEDS: *HR* Enoxaparin 40 MG/0.4 ML SYRINGE SQ SCH (06:01)
[2022-02-20] MEDS: amLODIPine 5 MG TABLET PO SCH (08:01)
[2022-02-20] MEDS: *HR* SitaGLIPtin 25 MG TABLET PO SCH (08:01)
[2022-02-20] MEDS: metroNIDAZOLE 500 MG TABLET PO SCH ×3 (08:02→20:57)
[2022-02-20] MEDS: Lactobacillus 1 EACH CAP.SPRINK PO SCH ×2 (08:02→20:57)
[2022-02-20] MEDS: Cyanocobalamin (B-12) 1,000 MCG TABLET PO SCH (08:02)
[2022-02-20] MEDS: Eucerin Cream 57 GM TUBE TP SCH (08:05)
[2022-02-20 11:14] LABS: BUN/Creatinine Ratio 21 (6-26); Blood Urea Nitrogen 16 mg/dL (8-23); eGFR For African Americans > 60 (> 60); eGFR For Non-African Americans > 60 (> 60)
[2022-02-20 11:32] LABS: Basophils % 0.5 %; Eosinophils # 0.1 K/mcL (0.0-0.6); Eosinophils % 4.8 %; Hematocrit 39.9 % (37.5-50.1); Lymphocytes # 0.8 K/mcL (0.6-4.6); Lymphocytes % 42.2 %; Mean Corpuscular HGB Conc 32.6 g/dL (31.6-35.5); Mean Corpuscular Hemoglobin 26.2 pg (28.0-33.3); Mean Corpuscular Volume 80.4 fL (83.0-100.0); Mean Platelet Volume 9.9 fL (9.4-12.4); Monocytes # 0.5 K/mcL (0.0-1.3); Monocytes % 24.6 %; Neutrophils # 0.5 K/mcL (1.6-8.9); Platelet Count 159 K/mcL (140-400); Red Blood Count 4.96 M/mcL (4.19-5.50); Red Cell Distribution Width 15.6 % (11.5-14.5); Segmented Neutrophils % 27.9 %; White Blood Count 1.9 K/mcL (4.3-11.1)
[2022-02-20 12:01] LABS: Platelet Estimate Normal (Normal)
[2022-02-20 12:58] LABS: C-Reactive Protein < 5 mg/L (Less than 10)
[2022-02-21] MEDS: Vancomycin 1,250 MG/262.5 ML IV.SOLN IVPB SCH ×2 (02:03→18:44)
[2022-02-21] MEDS: *HR* Enoxaparin 40 MG/0.4 ML SYRINGE SQ SCH (05:25)
[2022-02-21 07:14] VITALS: TEMP 97.9
[2022-02-21] MEDS: metroNIDAZOLE 500 MG TABLET PO SCH ×3 (10:47→20:11)
[2022-02-21] MEDS: Cyanocobalamin (B-12) 1,000 MCG TABLET PO SCH (10:47)
[2022-02-21] MEDS: amLODIPine 5 MG TABLET PO SCH (10:47)
[2022-02-21] MEDS: Lactobacillus 1 EACH CAP.SPRINK PO SCH ×2 (10:47→20:11)
[2022-02-21] MEDS: *HR* SitaGLIPtin 25 MG TABLET PO SCH (10:47)
[2022-02-21] MEDS: Eucerin Cream 57 GM TUBE TP SCH (10:48)
[2022-02-21] MEDS: Insulin LISPRO 300 UNITS/3 ML VIAL SUBQ SCH ×4 (10:48→20:13)
[2022-02-21] MEDS: valACYclovir 500 MG TABLET PO SCH ×2 (10:53→20:12)
[2022-02-22] MEDS: *HR* Enoxaparin 40 MG/0.4 ML SYRINGE SQ SCH (06:02)
[2022-02-22 06:51] VITALS: BP 122/76; PULSE 72; RESP 16; O2SAT 95
[2022-02-22] MEDS: metroNIDAZOLE 500 MG TABLET PO SCH (08:05)
[2022-02-22] MEDS: *HR* SitaGLIPtin 25 MG TABLET PO SCH (08:05)
[2022-02-22] MEDS: amLODIPine 5 MG TABLET PO SCH (08:05)
[2022-02-22] MEDS: valACYclovir 500 MG TABLET PO SCH (08:06)
[2022-02-22] MEDS: Eucerin Cream 57 GM TUBE TP SCH (08:06)
[2022-02-22] MEDS: Lactobacillus 1 EACH CAP.SPRINK PO SCH (08:06)
[2022-02-22] MEDS: Cyanocobalamin (B-12) 1,000 MCG TABLET PO SCH (08:06)
[2022-02-22] MEDS: Insulin LISPRO 300 UNITS/3 ML VIAL SUBQ SCH (08:07)
== END 2022-02-22 10:16 | disposition home or self-care (01) | DRG 949 ==
LOC: INPPIK 18:52 → SUATTDRO 18:52
PROVIDERS: ADMIT Nurse Practitioner Family; ATTEND Family Medicine